=== PATIENT | male | born 1960 | race Caucasian/White ===

== ENCOUNTER → 2020-11-05 08:41 | Outpatient (BNVA) | payer SELFPAY | PROVIDERS: Family Provider Nurse Practitioner; PCP Nurse Practitioner; Visit Provider Dermatology | DX: Z01.89 Encounter for other specified special examinations (principal) ==

== ENCOUNTER → 2021-05-06 08:28 | Outpatient (BNVA) | payer SELFPAY | PROVIDERS: Family Provider Nurse Practitioner; PCP Nurse Practitioner; Visit Provider Dermatology | DX: Z01.89 Encounter for other specified special examinations (principal) ==

== ENCOUNTER → 2021-10-28 08:12 | Outpatient (BNVA) | payer SELFPAY | PROVIDERS: Family Provider Nurse Practitioner; PCP Nurse Practitioner; Visit Provider Dermatology | DX: Z01.89 Encounter for other specified special examinations (principal) ==

== ENCOUNTER → 2022-03-04 14:32 | Outpatient (BNVA) | payer SELFPAY | PROVIDERS: Family Provider Nurse Practitioner; PCP Nurse Practitioner; Visit Provider Nurse Practitioner Family | DX: M25.562 Pain in left knee (principal); G89.29 Other chronic pain | CPT/HCPCS: 73562 ==

== ENCOUNTER → 2022-10-27 08:10 | Outpatient (BNVA) | payer SELFPAY | PROVIDERS: Family Provider Nurse Practitioner; PCP Nurse Practitioner; Visit Provider Dermatology | DX: Z01.89 Encounter for other specified special examinations (principal) ==

== ENCOUNTER → 2023-04-20 08:54 | Outpatient (BNVA) | payer BC, SELFPAY | PROVIDERS: Family Provider Nurse Practitioner; PCP Nurse Practitioner; Visit Provider Nurse Practitioner | DX: I10 Essential (primary) hypertension (principal); M25.50 Pain in unspecified joint | CPT/HCPCS: 80053; 80061; 84550 ==

== ENCOUNTER → 2023-06-16 13:13 | Outpatient (BNVA) | payer BC, MEDICAID, SELFPAY | PROVIDERS: Family Provider Nurse Practitioner; PCP Nurse Practitioner; Visit Provider Nurse Practitioner | DX: M54.50 Low back pain, unspecified (principal); M79.604 Pain in right leg; M79.605 Pain in left leg | CPT/HCPCS: 72100; 73522 ==

== ENCOUNTER 2023-09-24 11:01 | Outpatient (CLI) | payer BC, MEDICAID, SELFPAY ==
--- NOTE | 2023-09-24 12:45 | USCV_ITS ---
Alfonzo Watkins Age: 63 Gender: M : 1960 Exam Date: 09/24/2023 11:20 Ordering Phys: Beatriz Hurst Technologist: Ben Gipson Exam Location: [facility] [place] Indication: nicotine dependence Risk Factors: Previous Vascular Surgery: Right Brachial BP: / Left Brachial BP: / Right Left Velocity (cm/s) Spectral Plaque Velocity (cm/s) Spectral Plaque Syst/Diast Broadening Syst/Diast Broadening 150.00/37.40 Prox CCA 131.90/ 26.20 121.70/33.40 Mid CCA 146.90/ 31.30 108.00/31.80 Distal CCA 88.00 / 24.10 84.70/ 25.90 Prox ICA 97.10 / 31.40 62.30/ 30.00 Mid ICA 71.60 / 9.50 89.80/ 29.80 Distal ICA 62.90 / 22.20 128.30 ECA 108.10 Antegrade Vertebral Antegrade 48.70/ 18.20 cm/s 40.10/ 18.10 cm/s Tri Subclavian Tri 114.1 72.40 0 CONCLUSIONS Right ICA stenosis <50%. Mild atheromatous plaque right carotid bulb/ICA. Left ICA stenosis <50%. Mild atheromatous plaque left carotid bulb/ICA. Normal antegrade Doppler flow noted in the right vertebral artery. Normal antegrade Doppler flow noted in the left vertebral artery. Leonard Dumont MD (Electronically Signed) Final Date: 24 September 2023 14:02 S
== END 2023-09-24 11:02 | disposition home or self-care (01) ==
PROVIDERS: Family Provider Nurse Practitioner; PCP Nurse Practitioner; Visit Provider Nurse Practitioner
DX: F17.210 Nicotine dependence, cigarettes, uncomplicated (principal); H53.9 Unspecified visual disturbance; I65.23 Occlusion and stenosis of bilateral carotid arteries
CPT/HCPCS: 93880

== ENCOUNTER 2023-11-08 08:04 | Outpatient (CLI) | payer BC, MEDICAID, SELFPAY ==
--- NOTE | 2023-11-08 08:00 | USCV_ITS ---
Alfonzo Watkins Age: 63 Gender: M : 1960 Exam Date: 11/08/2023 08:17 Ordering Phys: Ted Carrion MD ([email or web address]) Technologist: CT Exam Location[place] [facility] [place] Indication: amaurosis fugax, ? TIA BP: 128 / 60 HR: 118 Rhythm: Sinus Technical Quality: Adequate MEASUREMENTS (Male / Female) Normal Values 2D ECHO LV Diastolic Diameter PLAX 4.6 cm 4.2 - 5.9 / 3.9 - 5.3 cm IVS Diastolic Thickness 1.4 cm 0.6 - 1.0 / 0.6 - 0.9 cm IVS Systolic Thickness 1.5 cm LVPW Diastolic Thickness 1.3 cm 0.6 - 1.0 / 0.6 - 0.9 cm LVPW Systolic Thickness 1.7 cm LVOT Diameter 2.1 cm LV Ejection Fraction 2D Teich 73.1 % LV Ejection Fraction MOD 2C 58.1 % LV Ejection Fraction 2C AL 60.5 % LA Diameter 4.0 cm RA Systolic Volume 4C AL 11.7 ml RA Systolic Volume 4C MOD 11.5 ml Aorta at Sinotubular Diameter 2.8 cm IVC Diameter 1.5 cm M-MODE LA Ao Ratio MM 1.0 AV Cusp Separation MM 2.0 cm DOPPLER AV Peak Velocity 164.0 cm/s LVOT Peak Velocity 160.0 cm/s AV Area Cont Eq vti 3.6 cm squared AV Area Cont Eq pk 3.3 cm squared MV Peak Velocity 90.0 cm/s MV Area PHT 3.0 cm squared Mitral E to A Ratio 1.0 TV Peak Velocity 112.0 cm/s TR Peak Velocity 139.5 cm/s TR Peak Gradient 7.8 mmHg TR Mean Velocity 83.0 cm/s TR Mean Gradient 3.2 mmHg TR Velocity Time Integral 25.1 cm TV Peak E Velocity 94.0 cm/s Right Atrial Pressure 3.0 mmHg Pulmonary Artery Systolic Pressu 10.8 mmHg PV Peak Velocity 94.5 cm/s FINDINGS Left Ventricle Left ventricle is normal in size. LV systolic function is normal with EF of 55 to 60%. No regional wall motion abnormalities are seen. Right Ventricle Normal in size and function Right Atrium Normal in size Left Atrium Normal in size Mitral Valve Structurally normal mitral valve. Mild mitral regurgitation. Aortic Valve Structurally normal aortic valve. No significant stenosis or regurgitation seen. Tricuspid Valve Pulmonary artery systolic pressure is normal. Pulmonic Valve Not well visualized Pericardium Normal Aorta Normal in size IVC Appears to be normal CONCLUSIONS LV systolic function is normal with EF of 55-60% Mild mitral regurgitation Compared or prior echocardiogram from 2018, no significant changes are seen. Varun Wolf MD (Electronically Signed) Final Date: 14 November 2023 12:44 S
== END 2023-11-08 08:05 | disposition home or self-care (01) ==
LOC: RAD 08:04
PROVIDERS: Family Provider Nurse Practitioner; PCP Nurse Practitioner Family; Visit Provider Internal Medicine Cardiovascular Disease
DX: G45.3 Amaurosis fugax (principal); I34.0 Nonrheumatic mitral (valve) insufficiency
CPT/HCPCS: 93306

== ENCOUNTER 2024-12-25 07:07 | Outpatient (CLI) | payer SELFPAY ==
--- NOTE | 2024-12-25 07:14 | CT_ITS ---
WS: [id number] CT TEMPORAL BONES TECHNIQUE: Noncontrast CT of the temporal bones with coronal and sagittal reformatted images. CLINICAL INFORMATION: CHOLESTEATOMA OF MIDDLE EAR, RIGHT.. CHRONIC MASTOIDITIS COMPARISON: MRI 2013 DLP: 394.[address] scans at [facility] use at least one of these dose optimization techniques: automated exposure control; mA and/or kV adjustment per patient size (includes targeted exams where dose is matched to clinical indication); or iterative reconstruction. FINDINGS: RIGHT: Mild mucosal thickening RIGHT mastoid tip. Normal external auditory canal. Ossicles are normal in appearance. Middle ear is well aerated. Normal tegmen tympani. Semicircular canals and cochlea are normal in appearance. Prussak's space is normal. Normal inner ear structures. Normal vestibular aqueduct. Facial nerve recess is normal. LEFT: Mucosal thickening LEFT mastoid tip. Normal external auditory canal. Ossicles are normal in appearance. Soft tissue thickening in the hypotympanum measuring 7.2 x 5.2 mm. Normal tegmen tympani. Semicircular canals and cochlea are normal in appearance. Prussak's space is normal. Normal inner ear structures. Normal vestibular aqueduct. Facial nerve recess is normal. Diffuse mild to moderate mucosal thickening in the paranasal sinuses worse in the LEFT frontal sinus, ethmoid air cells, with mild polypoid mucosal thickening in the maxillary sinuses and sphenoid sinuses CT/CT temporal bone wo con* [id number] IMPRESSION: 1. Mucosal thickening RIGHT mastoid. RIGHT middle ear is well aerated. Normal RIGHT inner ear structures. Normal scutum. 2. Soft tissue thickening in the LEFT hypotympanum measuring 7.2 x 5.[address] inflammatory. Thickening with retraction of the tympanic membrane. Normal os sicles and scutum. 3. Diffuse mild to moderate mucosal thickening in the paranasal sinuses with p artial opacification of the ethmoid air cells 4. Chronic appearing sclerosis of the mastoids bilaterally compatible with david or episodes of mastoiditis
== END 2024-12-25 07:08 | disposition home or self-care (01) ==
PROVIDERS: PCP Nurse Practitioner Family; Visit Provider Plastic Surgery Plastic Surgery Within the Head and Neck
DX: H71.91 Unspecified cholesteatoma, right ear (principal); H74.8X1 Other specified disorders of right middle ear and mastoid; M79.89 Other specified soft tissue disorders; J34.89 Other specified disorders of nose and nasal sinuses; H74.8X2 Other specified disorders of left middle ear and mastoid
CPT/HCPCS: 70480

== ENCOUNTER 2025-07-17 09:57 | Outpatient (CLI) | payer BC, SELFPAY ==
--- NOTE | 2025-07-17 10:04 | XR_ITS ---
WS: [id number] Exam: XR lumbar spine 2-3V* [id number] Date/Time of Exam: 07/17/2025 10:06 AM Reason For Exam: BACK PAIN OF LUMBAR REGION W/SCIATICA DLP: No acute fracture. 6.5 mm degenerative anterolisthesis of L4 on L5. Disc degeneration at all levels. Spondylosis at all levels. Mild degenerative retrolisthesis of T12 on L1. Slight levoscoliosis. Facet arthropathy at all levels but most marked from L3-S1. XR/XR lumbar spine 2-3V* [id number] IMPRESSION: 1. Moderately advanced degenerative changes as detailed above. 2. 6.5 mm degenerative anterolisthesis of L4 on L5. Mild levoscoliosis.
== END 2025-07-17 09:58 | disposition home or self-care (01) ==
LOC: RAD 09:59
PROVIDERS: PCP Nurse Practitioner Family; Visit Provider Nurse Practitioner Family
DX: M54.40 Lumbago with sciatica, unspecified side (principal); M41.86 Other forms of scoliosis, lumbar region; M43.16 Spondylolisthesis, lumbar region
CPT/HCPCS: 72100